=== PATIENT | female | born 1965 | race Caucasian/White ===

== ENCOUNTER 2020-10-17 04:41 | Day surgery (SDC) | payer OTHER ==
[2020-10-14 17:49] VITALS: BMI 36.6
[2020-10-17] MEDS ORDERED: MIDAZOLAM HCL 2 MG/2 ML SINGLE DOSE VIAL ONE (14:23)
[2020-10-17] MEDS ORDERED: PROPOFOL 20 ML ONE ×2 (14:51)
[2020-10-17 15:54] VITALS: BP 126/73; PULSE 75; TEMP 98.8
== END 2020-10-17 16:05 | disposition home or self-care (01) ==
LOC: JASU-SURG 04:41
PROVIDERS: ATTEND Urology
PROC: 0TF4XZZ Fragmentation in Left Kidney Pelvis, External Approach (ICD-10-PCS; principal; 2020-10-17 14:41)
DX: N20.0 Calculus of kidney (principal)

== ENCOUNTER 2022-07-18 11:05 | Day surgery (SDC) | payer OTHER ==
[~2022-07-18 11:05] MED LIST: FERRIC CARBOXYMALTOSE 750 MG in SODIUM CHLORIDE 250 ML IVPB ONE
[2022-07-18 17:26] VITALS: BP 131/80; PULSE 107; RESP 20; TEMP 98.1
== END 2022-07-18 12:30 | disposition home or self-care (01) ==
LOC: JONCNONCHE 11:05
PROVIDERS: ATTEND Internal Medicine Hematology & Oncology
PROC: 3E033GC Introduction of Other Therapeutic Substance into Peripheral Vein, Percutaneous Approach (ICD-10-PCS; principal; 2022-07-18)
DX: D50.9 Iron deficiency anemia, unspecified (principal)
CPT/HCPCS: 96365; J1439

== ENCOUNTER 2022-07-25 11:10 | Day surgery (SDC) | payer OTHER ==
[2022-07-25 16:37] VITALS: BP 125/94; PULSE 91; RESP 18; TEMP 98.2
== END 2022-07-25 12:30 | disposition home or self-care (01) ==
LOC: JONCNONCHE 11:10
PROVIDERS: ATTEND Internal Medicine Hematology & Oncology
PROC: 3E033GC Introduction of Other Therapeutic Substance into Peripheral Vein, Percutaneous Approach (ICD-10-PCS; principal; 2022-07-25)
DX: D50.9 Iron deficiency anemia, unspecified (principal)
CPT/HCPCS: 96365; J1439